=== PATIENT | female | born 1965 ===

== ENCOUNTER 2020-03-21 11:27 | Emergency (ER) | payer BC ==
--- NOTE | 2020-03-21 11:44 | Event Note ---
ED Screening Note Date of service: 03/21/20 Time: 11:42 ED Screening Note: 54-year-old female presents to the emergency room complaining of flulike symptoms with cough and chest pain. She also reports numbness to her left side of face all the way down her body x1 week. This initial assessment/diagnostic orders/clinical plan/treatment(s) is/are subject to change based on patients health status, clinical progression and re- assessment by fellow clinical providers in the ED. Further treatment and workup at subsequent clinical providers discretion. Patient/guardian urged not to elope from the ED as their condition may be serious if not clinically assessed and managed. Initial orders include:
--- NOTE | 2020-03-21 12:18 | XRay Report ---
CHEST 2 VIEWS INDICATION: cough, chest pain. COMPARISON: None FINDINGS: Support devices: None. Heart: Within normal limits. Lungs: No acute air space or interstitial disease. Pleura: No significant pleural effusion. No pneumothorax. Additional findings: None. IMPRESSION: 1. No acute findings. Signer Name: Surendra Casanova MD Signed: 03/21/2020 12:14 PM Workstation Name: [id number]
[2020-03-21 13:42] LABS: Basophils % (Auto) 1.2 % (0.0-1.8); Eosinophils # (Auto) 0.1 K/mm3 (0.0-0.4); Eosinophils % (Auto) 1.9 % (0.0-4.3); Hematocrit 45.8 % (30.3-42.9); Hemoglobin 15.8 gm/dl (10.1-14.3); Lymphocytes # (Auto) 1.1 K/mm3 (1.2-5.4); Lymphocytes % (Auto) 32.7 % (13.4-35.0); Mean Corpuscular HGB Conc 35 % (30-34); Mean Corpuscular Volume 90 fl (79-97); Monocytes # (Auto) 0.4 K/mm3 (0.0-0.8); Monocytes % (Auto) 10.8 % (0.0-7.3); Platelet Count 285 K/mm3 (140-440); Red Cell Distribution Width 12.9 % (13.2-15.2)
[2020-03-21 13:48] LABS: Alanine Aminotransferase 26 units/L (7-56); Albumin 4.5 g/dL (3.9-5); BUN/Creatinine Ratio 11; Blood Urea Nitrogen 8 mg/dL (7-17); Calcium 9.5 mg/dL (8.4-10.2); Hemolysis Index 13
[2020-03-21 23:43] VITALS: BP 150/97
== END 2020-03-22 01:34 ==
LOC: ED 11:27
DX: R05 Cough (principal); R07.89 Other chest pain; Z53.21 Procedure and treatment not carried out due to patient leaving prior to being seen by health care provider
CPT/HCPCS: 71046; 80053; 85025; 93005